=== PATIENT | female | born 2000 | race Caucasian/White ===

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

== ENCOUNTER 2018-03-26 19:14 | Emergency (ER) | payer BC ==
[2018-03-26 20:21] VITALS: BP 116/62
--- NOTE | 2018-03-26 21:00 | UC ---
Throat Pain/Nasal Fernando HPI - HPI Summary HPI Summary: 17-year-old woman comes in today with complaint of runny nose sinus congestion and sore throat and some body aches. This all started about 2 days ago. She's also had some fevers. No cough or chest congestion. She tried ibuprofen that did not help very much. - History of Current Complaint Chief Complaint: UCRespiratory Stated Complaint: SORE THROAT, BODY ACHES Time Seen by Provider: 03/26/18 20:30 Hx Last Menstrual Period: 03/21/18 Pain Intensity: 5 - Allergies/Home Medications Allergies/Adverse Reactions: Allergies Allergy/AdvReac Type Severity Reaction Status Date / Time No Known Allergies Allergy Verified 03/26/18 20:15 Home Medications: Home Medications Norgestimate-Ethinyl Estradiol [Sprintec 28 Day Tablet] 1 tab DAILY 03/26/18 [ History Confirmed 03/26/18] PMH/Surg Hx/FS Hx/Imm Hx Previously Healthy: Yes Other History Of: Negative For: HIV, Hepatitis B, Hepatitis C, Anticoagulant Therapy - Surgical History Surgical History: None - Family History Known Family History: Negative: Cardiac Disease, Hypertension, Diabetes - Social History Alcohol Use: None Substance Use Type: None Smoking Status (MU): Never Smoked Tobacco - Immunization History Most Recent Tetanus Shot: UTD Review of Systems Constitutional: Fever Skin: Negative Eyes: Negative ENT: Sore Throat, Nasal Discharge, Sinus Congestion, Sinus Pain/Tenderness Respiratory: Negative Cardiovascular: Negative Gastrointestinal: Negative Motor: Negative Neurovascular: Negative Musculoskeletal: Negative Neurological: Negative Psychological: Negative Is Patient Immunocompromised?: No All Other Systems Reviewed And Are Negative: Yes Physical Exam Triage Information Reviewed: Yes Appearance: Well-Appearing, No Pain Distress, Well-Nourished Vital Signs: Initial Vital Signs Temp 98.3 F 03/26/18 20:16 Pulse 73 03/26/18 20:16 Resp 16 03/26/18 20:16 BP 116/62 03/26/18 20:16 Pulse Ox 100 03/26/18 20:16 Vital Signs Reviewed: Yes Eye Exam: Normal Eyes: Positive: Conjunctiva Clear ENT: Positive: Pharyngeal erythema, Nasal congestion, Nasal drainage, TMs normal Neck exam: Normal Neck: Positive: Supple Respiratory: Positive: Lungs clear, Normal breath sounds, No respiratory distress Cardiovascular Exam: Normal Cardiovascular: Positive: RRR Musculoskeletal Exam: Normal Musculoskeletal: Positive: Strength Intact, ROM Intact Neurological Exam: Normal Neurological: Positive: Alert Psychological Exam: Normal Psychological: Positive: Age Appropriate Behavior Skin Exam: Normal Throat Pain/Nasal Course/Dx - Course Course Of Treatment: Rapid strep is negative. We discussed viral and bacterial infections and the role of antibiotics. Patient will continue symptomatic treatment at this time follow-up if not improved or worse. - Differential Dx/Diagnosis Provider Diagnoses: pharyngitis. fever Discharge - Sign-Out/Discharge Documenting (check all that apply): Patient Departure All imaging exams completed and their final reports reviewed: No Studies - Discharge Plan Condition: Stable Disposition: HOME Patient Education Materials: Pharyngitis (ED), Fever in Adults (ED) Referrals: Antonio Lieberman MD [Primary Care Provider] - Additional Instructions: FOLLOW UP WITH YOUR DOCTOR IF NOT COMPLETELY IMPROVED. GET RECHECKED FOR ANY WORSENING OF YOUR CONDITION OR QUESTIONS OR CONCERNS. - Billing Disposition and Condition Condition: STABLE Disposition: Home
== END 2018-03-26 21:26 | disposition home or self-care (01) ==
LOC: UCCORT 19:14
DX: J02.9 Acute pharyngitis, unspecified (principal); R50.9 Fever, unspecified
CPT/HCPCS: 87651; 99211; G0463

== ENCOUNTER 2018-05-21 18:40 | Emergency (ER) | payer BC ==
[2018-05-21 19:08] VITALS: BP 115/52
--- NOTE | 2018-05-21 19:39 | UC ---
Upper Extremity HPI - HPI Summary HPI Summary: 18-year-old female presents with onset of right hand pain after a sports injury this morning. 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 She is complaining of pain to the medial aspect of her hand immediately over the first metacarpal. States she did take some ibuprofen 600 mg earlier with some relief in the pain. Denies any erythema, ecchymosis, weakness, numbness, or tingling. - History of Current Complaint Chief Complaint: UCUpperExtremity Stated Complaint: RIGHT WRIST INJURY Time Seen by Provider: 05/21/18 19:07 Hx Obtained From: Patient Hx Last Menstrual Period: 05/12/18 Onset/Duration: Sudden Onset, Lasting Hours Severity Currently: Mild Pain Intensity: 4 Character: Dull, Aching Aggravating Factor(s): Movement Alleviating Factor(s): OTC Meds Associated Signs And Symptoms: Negative: Swelling, Redness, Bruising, Weakness, Numbness/Tingling Related History: Dominant Hand Right - Allergies/Home Medications Allergies/Adverse Reactions: Allergies Allergy/AdvReac Type Severity Reaction Status Date / Time No Known Allergies Allergy Verified 05/21/18 19:01 Home Medications: Home Medications Ibuprofen TAB* [Motrin TAB* 600 MG] 600 mg PO ONCE PRN 05/21/18 [History Confirmed 05/21/18] PMH/Surg Hx/FS Hx/Imm Hx Previously Healthy: Yes Psychological History: Depression Other History Of: Negative For: HIV, Hepatitis B, Hepatitis C, Anticoagulant Therapy - Surgical History Surgical History: None - Family History Known Family History: Positive: Non-Contributory - Social History Occupation: Student Lives: Dormitory/Roommates Alcohol Use: None Substance Use Type: None Smoking Status (MU): Never Smoked Tobacco - Immunization History Most Recent Tetanus Shot: UTD Review of Systems All Other Systems Reviewed And Are Negative: Yes Skin: Negative: Bruising Motor: Negative: Weakness Neurovascular: Negative: Decreased Sensation Musculoskeletal: Positive: Other: - See HPI Is Patient Immunocompromised?: No Physical Exam - Summary Physical Exam Summary: GENERAL APPEARANCE: Well developed, well nourished, alert and cooperative, and appears to be in no acute distress. CARDIAC: Normal S1 and S2. No S3, S4 or murmurs. Rhythm is regular. There is no peripheral edema, cyanosis or pallor. Extremities are warm and well perfused. Capillary refill is less than 2 seconds. LUNGS: Clear to auscultation and percussion without rales, rhonchi, wheezing or diminished breath sounds. MUSKULOSKELETAL: ROM intact to all extremities. Normal muscular development. Tenderness to first metacarpal of the right hand. No erythema, ecchymosis, crepitus, or gross deformity. EXTREMITIES: No edema. Peripheral pulses intact. NEUROLOGICAL: Strength and sensation symmetric and intact throughout. SKIN: Skin normal color, texture and turgor with no lesions or eruptions. Triage Information Reviewed: Yes Vital Signs: Initial Vital Signs Temp 99.6 F 05/21/18 19:03 Pulse 59 05/21/18 19:03 Resp 20 05/21/18 19:03 BP 115/52 05/21/18 19:03 Pulse Ox 99 05/21/18 19:03 Vital Signs Reviewed: Yes Diagnostics - Radiology No standard instances Radiology Interpretation Completed By: ED Physician Summary of Radiographic Findings: Negative for fracture or dislocation. Upper Extremity Course/Dx - Course Course Of Treatment: 18-year-old female presents with onset of right hand pain after a sports injury this morning. 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 She is complaining of pain to the medial aspect of her hand immediately over the first metacarpal. States she did take some ibuprofen 600 mg earlier with some relief in the pain. Denies any erythema , ecchymosis, weakness, numbness, or tingling. Exam revealed some tenderness over the right first metacarpal without erythema, eccymosis, crepitus, or gross deformity. CMS intact. X-ray negative for fracture or dislocation. Will treat for right hand sprain pending x-ray review by radiology. Will place her in a thumb spica splint. Recommend NSAIDs and RICE. 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 Warning symptoms reviewed. Verbalizes understanding and agrees with POC. - Differential Dx/Diagnosis Differential Diagnosis/HQI/PQRI: Contusion, Fracture (Closed), Strain, Sprain Provider Diagnosis: Sprain of right hand Discharge - Sign-Out/Discharge Documenting (check all that apply): Patient Departure All imaging exams completed and their final reports reviewed: No - Discharge Plan Condition: Stable Disposition: HOME Patient Education Materials: Hand Sprain (ED) Forms: *School Release Referrals: Antonio Lieberman MD [Primary Care Provider] - Additional Instructions: The x-ray performed in the clinic today showed no evidence of fracture. I suspect that your pain is from a sprain. The x-ray will be reviewed by the radiologist tomorrow. We will contact you if they see anything that will require a change in your treatment plan. Rest the hand as much as possible. Use the thumb spica splint applied in the clinic. You may remove to shower but should wear at all other times until evaluated by orthopedic surgery. Apply ice for 15-20 minutes 4 times a day for next several days. Elevate the hand at the level of your heart to help reduce swelling. Take ibuprofen 600 mg every 8 hours with food for next 7 days then may take every 8 hours as needed for pain. Follow up with Dr. Chapa, orthopedic surgery, in 1 week for evaluation and treatment. Seek immediate medical attention in the emergency room if you develop pain that is not managed with pain medication, have numbness, tingling or weakness in the hand, lose function in the hand, or have any worsening of symptoms. - Billing Disposition and Condition Condition: STABLE Disposition: Home
--- NOTE | 2018-05-22 13:22 | UC ---
- EKG/XRAY/CT Xray Comments: WET READ CORRECT Course/Dx - Diagnoses Provider Diagnoses: Sprain of right hand Discharge - Sign-Out/Discharge Documenting (check all that apply): Post-Discharge Follow Up All imaging exams completed and their final reports reviewed: Yes - Discharge Plan Condition: Stable Disposition: HOME Patient Education Materials: Hand Sprain (ED) Forms: *School Release Referrals: Antonio Lieberman MD [Primary Care Provider] - Additional Instructions: The x-ray performed in the clinic today showed no evidence of fracture. I suspect that your pain is from a sprain. The x-ray will be reviewed by the radiologist tomorrow. We will contact you if they see anything that will require a change in your treatment plan. Rest the hand as much as possible. Use the thumb spica splint applied in the clinic. You may remove to shower but should wear at all other times until evaluated by orthopedic surgery. Apply ice for 15-20 minutes 4 times a day for next several days. Elevate the hand at the level of your heart to help reduce swelling. Take ibuprofen 600 mg every 8 hours with food for next 7 days then may take every 8 hours as needed for pain. Follow up with Dr. Chapa, orthopedic surgery, in 1 week for evaluation and treatment. Seek immediate medical attention in the emergency room if you develop pain that is not managed with pain medication, have numbness, tingling or weakness in the hand, lose function in the hand, or have any worsening of symptoms. - Billing Disposition and Condition Condition: STABLE Disposition: Home
== END 2018-05-21 19:57 | disposition home or self-care (01) ==
LOC: UCCORT 18:40
DX: S63.91XA Sprain of unspecified part of right wrist and hand, initial encounter (principal); X50.0XXA Overexertion from strenuous movement or load, initial encounter; Y93.43 Activity, gymnastics; Y92.9 Unspecified place or not applicable
CPT/HCPCS: 99212; G0463